=== PATIENT | male | born 1975 | race Caucasian/White ===

== ENCOUNTER 2017-01-25 11:31 | Emergency (ER) | payer MEDICAID, OTHER ==
[~2017-01-25] VITALS: Ht 162.6 cm; Wt 85.0 kg
[~2017-01-25 11:31] MED LIST: AMLO5TAB2 PO
[2017-01-25 11:33] VITALS: BP 185/101; PULSE 97; RESP 15; TEMP 98.5; O2SAT 97
--- NOTE | 2017-01-25 12:13 | PD ---
HPI Chief Complaint: Headache Time Seen by Provider: 11:58 Travel History International Travel<30 days: No Contact w/Intl Traveler<30days: No Traveled to known affect area: No History of Present Illness HPI 41 year old Venezuelan speaking male here for evaluation of headache 3 weeks. 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 He reports the headache is gradual in onset, similar to previous headaches, relieved with OTC Tylenol. He denies fever, chills, visual changes, neck pain, head trauma. Symptom severity is mild. Alleviating factors are OTC Tylenol. PFSH Past Medical History Narrative Medical Hypertension, Migraines Heart Rhythm Problems: No Cardiac Catheterization: No Cardiovascular Problems: Yes High Cholesterol: No Congestive Heart Failure: No Diabetes: No Tetanus Vaccination: Unknown Past Surgical History Coronary Artery Bypass Graft: No Social History Alcohol Use: No Tobacco Use: No Substance Use: No Allergies-Medications (Allergen,Severity, Reaction): Coded Allergies: No Known Allergies (Unverified , 10/29/16) Reported Meds & Prescriptions Reported Meds & Active Scripts Active Amlodipine (Amlodipine Besylate) 5 Mg Tab 5 Mg PO DAILY Physical Exam Narrative GENERAL: Well-nourished, well-developed patient. SKIN: Focused skin assessment warm/dry. HEAD: Normocephalic. EYES: No scleral icterus. No injection or drainage. EOMs intact NECK: Supple, trachea midline. No JVD or lymphadenopathy. No meningismus CARDIOVASCULAR: Regular rate and rhythm without murmurs, gallops, or rubs. RESPIRATORY: Breath sounds equal bilaterally. No accessory muscle use. GASTROINTESTINAL: Abdomen soft, non-tender, nondistended. MUSCULOSKELETAL: No cyanosis, or edema. BACK: Nontender without obvious deformity. No CVA tenderness. NEUROLOGICAL: Awake and alert. Cranial nerves II through XII intact. Motor and sensory grossly within normal limits. Five out of 5 muscle strength in all muscle groups. Normal speech. Data Data Last Documented VS Vital Signs Date Time Temp Pulse Resp B/P (MAP) Pulse Ox O2 Delivery O2 Flow Rate FiO2 01/25/17 11:40 100 Room Air 01/25/17 11:33 98.5 97 15 185/101 (129) Orders Orders Ketorolac Inj (Toradol Inj) (01/25/17 12:15) [facility] Medical Decision Making Medical Screen Exam Complete: Yes Emergency Medical Condition: Yes Differential Diagnosis Migraine headache, tension headache, very unlikely [facility] Narrative Course 41-year-old male here for evaluation of headache 3 weeks. Headache was gradual onset, similar to previous, relieved with OTC Tylenol. Patient came in today because he did not have Tylenol to take. Patient is well-appearing, nontoxic, normal neurologic exam. His vital signs are stable he is afebrile, normotensive. On reexam patient reports his headache is resolved. Diagnosis Primary Impression: Head ache Qualified Codes: R51 - Headache Referrals: [facility] Additional Instructions: take motrin as needed for headache. Stay well hydrated and rest. Follow-up with the [facility]. Return if he developed new or worsening symptoms Scripts Ibuprofen (Ibuprofen) 800 Mg Tab 800 MG PO Q6HR Y for PAIN, #30 TAB 0 Refills Prov: Roshni Paniagua 01/25/17 Disposition: DISCHARGE HOME Condition: Stable Roshni Paniagua Jan 25, 2017 12:13
--- NOTE | 2017-01-25 12:13 | PD ---
HPI Chief Complaint: Headache Time Seen by Provider: 11:58 Travel History International Travel<30 days: No Contact w/Intl Traveler<30days: No Traveled to known affect area: No History of Present Illness HPI 41 year old [place]aguayan speaking male here for evaluation of headache 3 weeks. 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 He reports the headache is gradual in onset, similar to previous headaches, relieved with OTC Tylenol. He denies fever, chills, visual changes, neck pain, head trauma. Symptom severity is mild. Alleviating factors are OTC Tylenol. PFSH Past Medical History Narrative Medical Hypertension, Migraines Heart Rhythm Problems: No Cardiac Catheterization: No Cardiovascular Problems: Yes High Cholesterol: No Congestive Heart Failure: No Diabetes: No Tetanus Vaccination: Unknown Past Surgical History Coronary Artery Bypass Graft: No Social History Alcohol Use: No Tobacco Use: No Substance Use: No Allergies-Medications (Allergen,Severity, Reaction): Coded Allergies: No Known Allergies (Unverified , 10/29/16) Reported Meds & Prescriptions Reported Meds & Active Scripts Active Amlodipine (Amlodipine Besylate) 5 Mg Tab 5 Mg PO DAILY Physical Exam Narrative GENERAL: Well-nourished, well-developed patient. SKIN: Focused skin assessment warm/dry. HEAD: Normocephalic. EYES: No scleral icterus. No injection or drainage. EOMs intact NECK: Supple, trachea midline. No JVD or lymphadenopathy. No meningismus CARDIOVASCULAR: Regular rate and rhythm without murmurs, gallops, or rubs. RESPIRATORY: Breath sounds equal bilaterally. No accessory muscle use. GASTROINTESTINAL: Abdomen soft, non-tender, nondistended. MUSCULOSKELETAL: No cyanosis, or edema. BACK: Nontender without obvious deformity. No CVA tenderness. NEUROLOGICAL: Awake and alert. Cranial nerves II through XII intact. Motor and sensory grossly within normal limits. Five out of 5 muscle strength in all muscle groups. Normal speech. Data Data Last Documented VS Vital Signs Date Time Temp Pulse Resp B/P (MAP) Pulse Ox O2 Delivery O2 Flow Rate FiO2 01/25/17 11:40 100 Room Air 01/25/17 11:33 98.5 97 15 185/101 (129) Orders Orders Ketorolac Inj (Toradol Inj) (01/25/17 12:15) [facility] Medical Decision Making Medical Screen Exam Complete: Yes Emergency Medical Condition: Yes Differential Diagnosis Migraine headache, tension headache, very unlikely [facility] Narrative Course 41-year-old male here for evaluation of headache 3 weeks. Headache was gradual onset, similar to previous, relieved with OTC Tylenol. Patient came in today because he did not have Tylenol to take. Patient is well-appearing, nontoxic, normal neurologic exam. His vital signs are stable he is afebrile, normotensive. On reexam patient reports his headache is resolved. Diagnosis Primary Impression: Head ache Qualified Codes: R51 - Headache Referrals: [facility] Additional Instructions: take motrin as needed for headache. Stay well hydrated and rest. Follow-up with the [facility]. Return if he developed new or worsening symptoms Scripts Ibuprofen (Ibuprofen) 800 Mg Tab 800 MG PO Q6HR Y for PAIN, #30 TAB 0 Refills Prov: Roshni Paniagua 01/25/17 Disposition: DISCHARGE HOME Condition: Stable Roshni Paniagua Jan 25, 2017 12:13
[2017-01-25] MEDS ORDERED: KETOROLAC TROMETHAMINE 60 MG/2 ML (IM) VIAL IM ONE (12:15)
[2017-01-25] MEDS ORDERED: IBUP1TAB7 PO (13:06)
== END 2017-01-25 13:14 | disposition home or self-care (01) ==
LOC: NEPD 11:31
DX: R51 Headache (principal); I10 Essential (primary) hypertension
CPT/HCPCS: 96372; 99284; J1885